=== PATIENT | female | born 1955 | race Asian ===

== ENCOUNTER 2017-01-21 07:55 | Day surgery (SDC) | payer MEDICARE, OTHER ==
[2017-01-21] MEDS ORDERED: LACTATED RINGERS 1,000 ML IV ONE (08:20)
[2017-01-21] MEDS ORDERED: fentaNYL 100 MCG/2 ML VIAL IVP ONE (09:01)
[2017-01-21] MEDS ORDERED: MIDAZOLAM 2 MG/2 ML VIAL IVP ONE (09:01)
== END 2017-01-21 07:56 | disposition home or self-care (01) ==
PROC: 0DBL8ZX Excision of Transverse Colon, Via Natural or Artificial Opening Endoscopic, Diagnostic (ICD-10-PCS; 2017-01-21)
PROC: 0DBN8ZX Excision of Sigmoid Colon, Via Natural or Artificial Opening Endoscopic, Diagnostic (ICD-10-PCS; 2017-01-21)
PROC: 0DBP8ZX Excision of Rectum, Via Natural or Artificial Opening Endoscopic, Diagnostic (ICD-10-PCS; 2017-01-21)
PROC: 0DBM8ZX Excision of Descending Colon, Via Natural or Artificial Opening Endoscopic, Diagnostic (ICD-10-PCS; 2017-01-21)
PROC: 0DBK8ZX Excision of Ascending Colon, Via Natural or Artificial Opening Endoscopic, Diagnostic (ICD-10-PCS; principal; 2017-01-21 09:00)
DX: K51.00 Ulcerative (chronic) pancolitis without complications (principal); K63.5 Polyp of colon
CPT/HCPCS: 45380; J7120

== ENCOUNTER 2017-11-20 17:22 | Emergency (ER) | payer OTHER, MEDICARE ==
[2017-11-20 17:29] VITALS: BP 137/81
[2017-11-20] MEDS ORDERED: IBUPROFEN 600 MG TABLET PO STA (18:17)
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
== END 2017-11-20 18:25 | disposition home or self-care (01) ==
LOC: ED 17:22
DX: S16.1XXA Strain of muscle, fascia and tendon at neck level, initial encounter (principal); V43.52XA Car driver injured in collision with other type car in traffic accident, initial encounter; Y92.481 Parking lot as the place of occurrence of the external cause
CPT/HCPCS: 99282; 99283

== ENCOUNTER 2017-12-15 14:16 | Outpatient (CLI) | payer MEDICARE, OTHER ==
--- NOTE | 2017-12-15 18:57 | XRAY Report ---
THREE VIEW LEFT ELBOW: 12/15/2017 CLINICAL INDICATION: Severe left elbow pain. FINDINGS: AP, lateral, oblique views of the left elbow demonstrate no evidence of fracture or dislocation. No effusion is present. The joint spaces are preserved. IMPRESSION: NORMAL LEFT ELBOW. TD: 12/15/2017 18:56
== END 2017-12-15 14:17 | disposition home or self-care (01) ==
LOC: DI 14:16
PROVIDERS: ATTEND Internal Medicine
DX: M25.522 Pain in left elbow (principal)

== ENCOUNTER 2018-04-20 09:13 | Outpatient (CLI) | payer MEDICARE, OTHER ==
--- NOTE | 2018-04-20 10:50 | XRAY Report ---
Procedure Date: 04/20/2018 Accession Number: [id number] / [id number] Procedure: XR - Foot 3 View BILAT CPT Code: FULL RESULT: EXAM: Foot 3 View BILAT DATE: 04/20/2018 9:27 AM CLINICAL HISTORY: BL FOOT PAIN X 3 WKS COMPARISON: Left calcaneus 05/31/2014, right foot 01/02/2014 TECHNIQUE: 3 views each foot. FINDINGS: RIGHT: Bones: Stable calcaneal spurring. Joints: Stable osteoarthritis of the first metatarsophalangeal joint, with minimal hallux valgus. Soft Tissues: Normal. No soft tissue swelling. LEFT: Bones: Stable calcaneal spurring. Joints: Normal. No subluxations. Soft Tissues: Normal. No soft tissue swelling. IMPRESSION: Stable bilateral calcaneal spurring and osteoarthritis of the right first metatarsophalangeal joint. RADIA
== END 2018-04-20 09:14 | disposition home or self-care (01) ==
LOC: DI 09:13
PROVIDERS: ATTEND Podiatrist
DX: M79.672 Pain in left foot (principal); M79.671 Pain in right foot; M19.071 Primary osteoarthritis, right ankle and foot; M77.32 Calcaneal spur, left foot; M77.31 Calcaneal spur, right foot

== ENCOUNTER 2018-11-08 23:53 | Outpatient (CLI) | payer MEDICARE, OTHER | END 2018-11-08 23:54 | disposition critical access hospital (66) | LOC: EMS 23:53 | PROVIDERS: ATTEND Surgery | DX: R25.8 Other abnormal involuntary movements (principal); R19.7 Diarrhea, unspecified | CPT/HCPCS: A0425; A0429 ==

== ENCOUNTER 2018-11-09 00:09 | Emergency (ER) | payer MEDICARE, OTHER ==
[2018-11-09] MEDS ORDERED: SODIUM CHLORIDE 0.9% 1,000 ML IV ONE (00:23)
[2018-11-09] MEDS ORDERED: ACETAMINOPHEN 500 MG TABLET PO STA (00:23)
[2018-11-09 00:54] LABS: BASOPHILS % (AUTO) 0.3 %; EOSINOPHILS # (AUTO) 0.2 10^3/uL (0.0-0.7); EOSINOPHILS % (AUTO) 1.1 %; HGB - HEMOGLOBIN 14.2 g/dL (12.0-16.0); LYMPHOCYTES # (AUTO) 0.6 10^3/uL (1.5-3.5); LYMPHOCYTES % (AUTO) 4.7 %; MEAN CORPUSCULAR HEMOGLOBIN 29.7 pg (27.0-31.0); MEAN CORPUSCULAR HGB CONC 32.8 g/dL (32.0-36.0); MEAN CORPUSCULAR VOLUME 90.7 fL (81.0-99.0); MEAN PLATELET VOLUME 6.6 fL (7.9-10.8); MONOCYTES # (AUTO) 0.3 10^3/uL (0.0-1.0); MONOCYTES % (AUTO) 1.9 %; NEUTROPHILS # (AUTO) 12.8 10^3/uL (1.5-6.6); PLT - PLATELET COUNT 290 10^3/uL (130-450); RED BLOOD COUNT 4.79 10^6/uL (4.20-5.40); RED CELL DISTRIBUTION WIDTH 14.7 % (12.0-15.0); WHITE BLOOD COUNT 13.9 x10^3/uL (4.8-10.8)
[2018-11-09 01:09] LABS: ALBUMIN 3.8 g/dL (3.2-5.5); ALBUMIN/GLOBULIN RATIO 1.1 (1.0-2.2); BILIRUBIN,TOTAL 0.6 mg/dL (0.2-1.0); CREATININE 0.6 mg/dL (0.4-1.0); TOTAL PROTEIN 7.2 g/dL (6.7-8.2)
[2018-11-09 01:43] LABS: BILIRUBIN,URINE NEGATIVE (NEGATIVE); GLUCOSE, URINE (UA) NEGATIVE (NEGATIVE); KETONES,URINE (UA) NEGATIVE (NEGATIVE); LEUKOCYTE ESTERASE, URINE NEGATIVE (NEGATIVE); NITRITE,URINE NEGATIVE (NEGATIVE); OCCULT BLOOD,URINE TRACE-INTA (NEGATIVE); PROTEIN,URINE NEGATIVE (NEGATIVE); UROBILINOGEN,URINE 0.2 (NORMAL) E.U./dL (NORMAL)
[2018-11-09 01:45] LABS: CLARITY,URINE CLEAR (CLEAR)
--- NOTE | 2018-11-09 02:55 | ED Physician Documentation ---
History of Present Illness - Stated complaint Stated Complaint: SHAKY - Chief complaint Chief Complaint: General - Additonal information Additional information: 63-year-old female presents to the emergency department for evaluation of feeling very chilled and shaky which occurred suddenly. At home the patient developed chills and feeling very shaky. The patient denies headache, nasal congestion, sore throat, cough, shortness of breath, abdominal pain or motor or sensory changes. Presently, the patient's symptoms are improved. No other associated symptoms. No attempts at symptom management. Symptoms are described as moderate Review of Systems Constitutional: reports: Fever, Chills, Myalgias, Fatigue Eyes: denies: Discharge Ears: denies: Ear pain Nose: denies: Rhinorrhea / runny nose, Congestion Throat: denies: Sore throat Cardiac: denies: Palpitations Respiratory: denies: Cough GI: denies: Vomiting : denies: Dysuria Skin: denies: Rash Musculoskeletal: denies: Neck pain Neurologic: reports: Generalized weakness PD PAST MEDICAL HISTORY - Past Medical History Cardiovascular: None Respiratory: None Endocrine/Autoimmune: None GI: Ulcerative colitis CHARTERED FINANCIAL ANALYST: Fibroids : None HEENT: Chronic vision loss Psych: None Musculoskeletal: None, Osteoarthritis Derm: Other - Past Surgical History Past Surgical History: Yes General: Colonoscopy, EGD - Present Medications Home Medications: Ambulatory Orders Medication Instructions Recorded Confirmed Mesalamine [Asacol] 400 mg PO BID 04/17/13 10/06/18 azaTHIOprine [Azathioprine] 100 mg PO DAILY 06/06/14 10/06/18 Ferrous Sulfate 325 mg PO DAILY 11/09/14 10/06/18 [place]-3/Dha/Epa/Fish Oil [[place]-3 2,000 mg PO DAILY 11/09/14 10/06/18 Fish Oil 1,000 mg Sfgl] Calcium Carbonate/Vitamin D3 1 tab PO BID 04/11/16 10/06/18 [Calcium 500 + Vit D Caplet] Cholecalciferol (Vitamin D3) 5,000 unit PO DAILY 10/02/17 10/06/18 [Vitamin D3] - Allergies Allergies/Adverse Reactions: Allergies Allergy/AdvReac Type Severity Reaction Status Date / Time No Known Drug Allergies Allergy Verified 06/04/18 13:32 - Social History Does the pt smoke?: No Smoking Status: Never smoker Does the pt drink ETOH?: No Does the pt have substance abuse?: No - Immunizations Immunizations are current?: Yes - POLST Patient has POLST: No PD ED PE NORMAL - General General: Alert and oriented X 3, No acute distress - HEENT HEENT: Atraumatic, PERRL, EOMI, Ears normal - Neck Neck: Supple, no meningeal sign - Cardiac Cardiac: RRR, Strong equal pulses - Respiratory Respiratory: No respiratory distress, Clear bilaterally - Abdomen Abdomen: Soft, Non tender, Non distended - Derm Derm: Normal color - Extremities Extremities: No deformity, No edema - Neuro Neuro: Alert and oriented X 3, Normal speech - Psych Psych: Normal affect Results - Vitals Vitals: Vital Signs - 24 hr 11/09/18 11/09/18 00:13 02:19 Temperature 38.5 C H 37.6 C H Heart Rate 74 68 Respiratory 18 16 Rate Blood Pressure 138/80 H 105/64 O2 Saturation 97 96 Oxygen O2 Source Room air - Labs Labs: Laboratory Tests 11/09/18 11/09/18 11/09/18 00:38 00:38 00:38 WBC 13.9 H RBC 4.79 Hgb 14.2 Hct 43.5 MCV 90.7 MCH 29.7 MCHC 32.8 RDW 14.7 Plt Count 290 MPV 6.6 L Neut # (Auto) 12.8 H Lymph # (Auto) 0.6 L [place] # (Auto) 0.3 Eos # (Auto) 0.2 Baso # (Auto) 0.0 Absolute Nucleated RBC 0.01 Nucleated RBC % 0.0 Sodium 139 Potassium 3.7 Chloride 102 Carbon Dioxide 28 Anion Gap 9.0 BUN 21 H Creatinine 0.6 Estimated GFR (MDRD) 101 Glucose 106 H Lactic Acid Calcium 9.0 Total Bilirubin 0.6 AST 21 ALT 24 Alkaline Phosphatase 59 Troponin I < 0.04 Total Protein 7.2 Albumin 3.8 Globulin 3.4 Albumin/Globulin Ratio 1.1 Lipase 50 Urine Color Urine Clarity Urine pH Ur Specific [place] Urine Protein Urine Glucose (UA) Urine Ketones Urine Occult Blood Urine Nitrite Urine Bilirubin Urine Urobilinogen Ur Leukocyte Esterase Ur Microscopic Review Urine Culture Comments Influenza A (Rapid) Influenza B (Rapid) 11/09/18 11/09/18 11/09/18 00:38 00:48 01:05 WBC RBC Hgb Hct MCV MCH MCHC RDW Plt Count MPV Neut # (Auto) Lymph # (Auto) [place] # (Auto) Eos # (Auto) Baso # (Auto) Absolute Nucleated RBC Nucleated RBC % Sodium Potassium Chloride Carbon Dioxide Anion Gap BUN Creatinine Estimated GFR (MDRD) Glucose Lactic Acid 1.6 Calcium Total Bilirubin AST ALT Alkaline Phosphatase Troponin I Total Protein Albumin Globulin Albumin/Globulin Ratio Lipase Urine Color YELLOW Urine Clarity CLEAR Urine pH 6.0 Ur Specific [place] 1.020 Urine Protein NEGATIVE Urine Glucose (UA) NEGATIVE Urine Ketones NEGATIVE Urine Occult Blood TRACE-INTA Urine Nitrite NEGATIVE Urine Bilirubin NEGATIVE Urine Urobilinogen 0.2 (NORMAL) Ur Leukocyte Esterase NEGATIVE Ur Microscopic Review NOT INDICATED Urine Culture Comments NOT INDICATED Influenza A (Rapid) Negative Influenza B (Rapid) Negative PD MEDICAL DECISION MAKING - ED course ED course: The patient's shaking seems to be secondary to the sudden onset of a fever. The patient's symptoms most likely representing viral process. Currently there is no evidence of acute Sepsis, pneumonia on clinical exam or urine infection. Most likely the etiology is viral. On reassessment the patient is resting comfortably and her symptoms are much improved. The patient appears appropriate for discharge and ongoing outpatient management. I discussed warning signs and recommended returning to the emergency department for any worsening or any concerns Departure - Departure Disposition: 01 Home, Self Care Clinical Impression: Febrile illness, acute Condition: Good Instructions: ED Viral Syndrome Follow-Up: Ethel Chavez MD [Primary Care Provider] - Within 1 week Comments: Please return to the emergency department for any worsening or any concerns
[2018-11-09 03:04] VITALS: BP 94/53
== END 2018-11-09 03:13 | disposition home or self-care (01) ==
LOC: EDUNIT# → ED 00:09
DX: R50.9 Fever, unspecified (principal)
CPT/HCPCS: 36415; 80053; 81003; 83605; 83690; 84484; 85025; 87040; 87275; 87276; 96360; 99283; A9270; 81001; 87086

== ENCOUNTER 2019-03-24 14:10 | Outpatient (CLI) | payer MEDICARE, OTHER ==
--- NOTE | 2019-03-24 15:29 | XRAY Report ---
Reason: COUGH Procedure Date: 03/24/2019 Accession Number: [id number] / [id number] Procedure: XR - Chest 2 View X-Ray CPT Code: 50523 FULL RESULT: EXAM: CHEST RADIOGRAPHY EXAM DATE: 03/24/2019 02:32 PM. CLINICAL HISTORY: Cough. COMPARISON: CHEST 2 VIEW PA/LAT 08/17/2014 2:39 PM. TECHNIQUE: 2 views. FINDINGS: Lungs/Pleura: No focal opacities evident. No pleural effusion. No pneumothorax. Normal volumes. Mediastinum: Heart and mediastinal contours are unremarkable. Other: None. IMPRESSION: No acute cardiopulmonary abnormality. RADIA
== END 2019-03-24 14:11 | disposition home or self-care (01) ==
LOC: DI 14:10
PROVIDERS: ATTEND Internal Medicine
DX: R05 Cough (principal)
CPT/HCPCS: 71046

== ENCOUNTER 2019-05-27 09:50 | Outpatient (CLI) | payer MEDICARE, OTHER ==
[2019-05-27 10:11] LABS: BASOPHILS # (AUTO) 0.1 10^3/uL (0.0-0.1); BASOPHILS % (AUTO) 1.4 %; EOSINOPHILS # (AUTO) 0.1 10^3/uL (0.0-0.7); EOSINOPHILS % (AUTO) 2.9 %; HGB - HEMOGLOBIN 13.2 g/dL (12.0-16.0); LYMPHOCYTES # (AUTO) 0.9 10^3/uL (1.5-3.5); LYMPHOCYTES % (AUTO) 26.6 %; MEAN CORPUSCULAR HEMOGLOBIN 29.5 pg (27.0-31.0); MEAN CORPUSCULAR HGB CONC 31.4 g/dL (32.0-36.0); MEAN PLATELET VOLUME 8.2 fL (7.9-10.8); MONOCYTES # (AUTO) 0.6 10^3/uL (0.0-1.0); MONOCYTES % (AUTO) 17.1 %; NEUTROPHILS # (AUTO) 1.8 10^3/uL (1.5-6.6); NEUTROPHILS % (AUTO) 51.7 %; PLT - PLATELET COUNT 312 10^3/uL (130-450); RED BLOOD COUNT 4.48 10^6/uL (4.20-5.40); RED CELL DISTRIBUTION WIDTH 13.9 % (12.0-15.0); WHITE BLOOD COUNT 3.5 x10^3/uL (4.8-10.8)
[2019-05-27 10:33] LABS: ALBUMIN 3.7 g/dL (3.2-5.5); ALBUMIN/GLOBULIN RATIO 1.1 (1.0-2.2); BILIRUBIN,TOTAL 1.4 mg/dL (0.2-1.0); CALCIUM 8.8 mg/dL (8.5-10.3); CREATININE 0.6 mg/dL (0.4-1.0); TOTAL PROTEIN 7.1 g/dL (6.7-8.2)
== END 2019-05-27 09:51 | disposition home or self-care (01) ==
LOC: LAB 09:50
PROVIDERS: ATTEND Internal Medicine Gastroenterology
DX: K51.011 Ulcerative (chronic) pancolitis with rectal bleeding (principal)
CPT/HCPCS: 36415; 80053; 85025; 86140

== ENCOUNTER 2019-08-27 15:21 | Emergency (ER) | payer OTHER, MEDICARE ==
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
[2019-08-27 18:28] VITALS: BP 122/78
== END 2019-08-27 18:47 | disposition home or self-care (01) ==
LOC: ED 15:21
DX: Z04.1 Encounter for examination and observation following transport accident (principal)
CPT/HCPCS: 99282

== ENCOUNTER 2021-04-30 11:53 | Outpatient (CLI) | payer MEDICARE, OTHER ==
--- NOTE | 2021-04-30 15:17 | Ultrasound Report ---
PROCEDURE: Duplex Ext Veins Right INDICATIONS: RLE discomfort TECHNIQUE: Real-time imaging, as well as color and pulse Doppler interrogation, were performed of the lower extr emity deep veins from the inguinal ligament to the popliteal fossa. COMPARISON: None. FINDINGS: The deep veins are normally compressible, and free of intraluminal thrombus. Color and pu lse Doppler demonstrate normal phasic intraluminal flow. There is normal augmentation response to di stal compression maneuver. IMPRESSION: No sonographic evidence of DVT. Reviewed by: Ten Gagnon MD on 04/30/2021 3:16 PM PDT Approved by: Ten Gagnon MD on 04/30/2021 3:16 PM PDT Station ID: [id number]
== END 2021-04-30 11:54 | disposition home or self-care (01) ==
LOC: LAB 11:53 → DI 11:54
PROVIDERS: ATTEND Internal Medicine
DX: M79.661 Pain in right lower leg (principal)

== ENCOUNTER 2021-06-04 11:37 | Outpatient (CLI) | payer MEDICARE, OTHER ==
--- NOTE | 2021-06-04 11:55 | XRAY Report ---
PROCEDURE: Foot 3 View LT INDICATIONS: L FOOT INJURY,PAIN TECHNIQUE: 4 views of the foot were acquired. COMPARISON: [facility] 04/20/2018. FINDINGS: Bones: No fractures or dislocations. There is mild degeneration of the interphalangeal joints. Visua lized osseous structures appear osteopenic. No suspicious bony lesions. Soft tissues: No tibiotalar joint effusion. Achilles tendon appears intact. IMPRESSION: 1. No fracture or dislocation. Reviewed by: Álvaro Brandt MD on 06/04/2021 11:54 AM PDT Approved by: Álvaro Brandt MD on 06/04/2021 11:54 AM PDT Station ID: [id number]
[2021-06-04 11:59] LABS: EOSINOPHILS # (AUTO) 0.1 10^3/uL (0.0-0.7); EOSINOPHILS % (AUTO) 1.8 %; HCT - HEMATOCRIT 43.9 % (37.0-47.0); HGB - HEMOGLOBIN 14.1 g/dL (12.0-16.0); LYMPHOCYTES # (AUTO) 0.8 10^3/uL (1.5-3.5); LYMPHOCYTES % (AUTO) 19.9 %; MEAN CORPUSCULAR HEMOGLOBIN 30.3 pg (27.0-31.0); MEAN CORPUSCULAR HGB CONC 32.1 g/dL (32.0-36.0); MEAN CORPUSCULAR VOLUME 94.2 fL (81.0-99.0); MEAN PLATELET VOLUME 8.6 fL (7.9-10.8); MONOCYTES # (AUTO) 0.4 10^3/uL (0.0-1.0); MONOCYTES % (AUTO) 11.1 %; NEUTROPHILS # (AUTO) 2.6 10^3/uL (1.5-6.6); NEUTROPHILS % (AUTO) 66.2 %; PLT - PLATELET COUNT 247 10^3/uL (130-450); RED BLOOD COUNT 4.66 10^6/uL (4.20-5.40); RED CELL DISTRIBUTION WIDTH 14.1 % (12.0-15.0)
[2021-06-04 12:18] LABS: ALBUMIN 3.7 g/dL (3.2-5.5); ALBUMIN/GLOBULIN RATIO 1.2 (1.0-2.2); BILIRUBIN,TOTAL 0.7 mg/dL (0.2-1.0); CREATININE 0.6 mg/dL (0.4-1.0); POTASSIUM 4.2 mmol/L (3.5-5.0); TOTAL PROTEIN 6.9 g/dL (6.7-8.2)
== END 2021-06-04 11:38 | disposition home or self-care (01) ==
LOC: DI 11:37
PROVIDERS: ATTEND Internal Medicine
DX: S99.922A Unspecified injury of left foot, initial encounter (principal); M79.672 Pain in left foot; K51.011 Ulcerative (chronic) pancolitis with rectal bleeding
CPT/HCPCS: 36415; 80053; 83993; 85025

== ENCOUNTER 2021-10-17 14:50 | Outpatient (CLI) | payer MEDICARE, OTHER ==
[2021-10-17 15:24] LABS: BILIRUBIN,URINE NEGATIVE (NEGATIVE); GLUCOSE, URINE (UA) NEGATIVE (NEGATIVE); KETONES,URINE (UA) NEGATIVE (NEGATIVE); LEUKOCYTE ESTERASE, URINE NEGATIVE (NEGATIVE); NITRITE,URINE NEGATIVE (NEGATIVE); OCCULT BLOOD,URINE TRACE-INTA (NEGATIVE); PROTEIN,URINE NEGATIVE (NEGATIVE); UROBILINOGEN,URINE 0.2 (NORMAL) E.U./dL (NORMAL)
[2021-10-17 15:25] LABS: CLARITY,URINE CLEAR (CLEAR)
--- NOTE | 2021-10-17 15:35 | XRAY Report ---
PROCEDURE: Chest 2 View X-Ray INDICATIONS: FEVER,COUGH TECHNIQUE: 2 view(s) of the chest. COMPARISON: March 24, 2019 FINDINGS: SUPPORT DEVICES: None. LUNGS/PLEURA: No focal consolidation, pleural effusion or space-occupying pneumothorax. MEDIASTINUM: The cardiomediastinal silhouette is within normal limits. BONES/SOFT TISSUES: No acute abnormality. IMPRESSION: 1.No acute cardiopulmonary abnormality. Reviewed by: Ian Maxwell MD on 10/17/2021 3:34 PM [facility] Approved by: Ian Maxwell MD on 10/17/2021 3:34 PM [facility] Station ID: [id number]
[2021-10-17 15:51] LABS: BACTERIA,URINE Rare /HPF (None Seen); RBC,URINE None Seen /HPF (0-5); SQUAMOUS EPITHELIAL CELL,UR NONE SEEN (<= Few); WBC,URINE 0-3 /HPF (0-5)
== END 2021-10-17 14:51 | disposition home or self-care (01) ==
LOC: LAB 14:50 → DI 14:51
PROVIDERS: ATTEND Internal Medicine
DX: R50.9 Fever, unspecified (principal); R05.9 Cough, unspecified
CPT/HCPCS: 81001; 87040; 87086

== ENCOUNTER 2021-10-21 08:00 | Outpatient (CLI) | payer MEDICARE, OTHER | END 2021-10-21 23:59 | LOC: LAB.R 08:00 | PROVIDERS: ATTEND Internal Medicine | DX: U07.1 COVID-19 (principal) ==

== ENCOUNTER 2021-12-05 15:40 | Outpatient (CLI) | payer MEDICARE, OTHER ==
--- NOTE | 2021-12-05 16:09 | XRAY Report ---
PROCEDURE: Foot 3 View BILAT INDICATIONS: BILAT FOOT PAIN TECHNIQUE: 3 views of the bilateral feet were acquired. COMPARISON: June 04, 2021 FINDINGS: BONES: Right: No acute, displaced fracture or dislocation. Mild to moderate arthrosis of the first MTP. Sma ll plantar calcaneal enthesophyte. Diffuse osteopenia. Productive change of the hallux sesamoids. Left: No acute, displaced fracture or dislocation. Productive change of the hallux sesamoids. Small p lantar calcaneal enthesophyte. Diffuse osteopenia. SOFT TISSUES: No focal abnormality. IMPRESSION: 1.No acute osseous abnormality. Reviewed by: Ian Maxwell MD on 12/05/2021 4:08 PM [facility] Approved by: Ian Maxwell MD on 12/05/2021 4:08 PM [facility] Station ID: [id number]
== END 2021-12-05 15:41 | disposition home or self-care (01) ==
LOC: DI 15:40
PROVIDERS: ATTEND Podiatrist
DX: M79.672 Pain in left foot (principal); M79.671 Pain in right foot

== ENCOUNTER 2021-12-18 12:28 | Outpatient (CLI) | payer MEDICARE, OTHER ==
[2021-12-18 13:33] LABS: B. PARAPERTUSSIS- RESP PCR PAN NOT DETECTED; B. PERTUSSIS- RESP PCR PANEL NOT DETECTED; C. PNEUMONIAE- RESP PCR PANEL NOT DETECTED; CORONAVIRUS 229E-RESP PCR NOT DETECTED; CORONAVIRUS HKU1-RESP PCR NOT DETECTED; CORONAVIRUS NL63-RESP PCR NOT DETECTED; CORONAVIRUS OC43-RESP PCR NOT DETECTED; HUMAN METAPNEUMOVIRUS NOT DETECTED; INFLUENZA A- RESP PCR PANEL NOT DETECTED; INFLUENZA B - RESP PCR PANEL NOT DETECTED; M. PNEUMONIAE- RESP PCR PANEL NOT DETECTED; PARAINFLUENZA VIRUS 1 NOT DETECTED; PARAINFLUENZA VIRUS 2 NOT DETECTED; PARAINFLUENZA VIRUS 3 NOT DETECTED; PARAINFLUENZA VIRUS 4 NOT DETECTED; RHINOVIRUS/ENTEROVIRUS DETECTED; RSV- RESP PCR PANEL NOT DETECTED; SARS-CoV-2 -RESP PCR PANEL NOT DETECTED
== END 2021-12-18 12:29 | disposition home or self-care (01) ==
LOC: LAB.R 12:28
PROVIDERS: ATTEND Internal Medicine
DX: R05.1 Acute cough (principal); Z20.822 Contact with and (suspected) exposure to COVID-19
CPT/HCPCS: 0202U

== ENCOUNTER 2022-02-05 14:35 | Outpatient (CLI) | payer MEDICARE, OTHER ==
[2022-02-05 14:55] LABS: BASOPHILS % (AUTO) 0.7 %; EOSINOPHILS # (AUTO) 0.1 10^3/uL (0.0-0.7); EOSINOPHILS % (AUTO) 1.7 %; HCT - HEMATOCRIT 45.4 % (37.0-47.0); HGB - HEMOGLOBIN 14.8 g/dL (12.0-16.0); LYMPHOCYTES # (AUTO) 1.4 10^3/uL (1.5-3.5); LYMPHOCYTES % (AUTO) 29.3 %; MEAN CORPUSCULAR HEMOGLOBIN 30.6 pg (27.0-31.0); MEAN CORPUSCULAR HGB CONC 32.6 g/dL (32.0-36.0); MEAN PLATELET VOLUME 8.6 fL (7.9-10.8); MONOCYTES # (AUTO) 0.4 10^3/uL (0.0-1.0); MONOCYTES % (AUTO) 9.3 %; NEUTROPHILS # (AUTO) 2.7 10^3/uL (1.5-6.6); NEUTROPHILS % (AUTO) 58.8 %; PLT - PLATELET COUNT 218 10^3/uL (130-450); RED BLOOD COUNT 4.83 10^6/uL (4.20-5.40); RED CELL DISTRIBUTION WIDTH 12.6 % (12.0-15.0); WHITE BLOOD COUNT 4.6 x10^3/uL (4.8-10.8)
[2022-02-05 15:11] LABS: ALBUMIN 3.8 g/dL (3.2-5.5); ALBUMIN/GLOBULIN RATIO 1.2 (1.0-2.2); BILIRUBIN,TOTAL 0.5 mg/dL (0.2-1.0); CALCIUM 9.2 mg/dL (8.5-10.3); CREATININE 0.8 mg/dL (0.4-1.0); POTASSIUM 4.5 mmol/L (3.5-5.0); TOTAL PROTEIN 6.9 g/dL (6.7-8.2)
== END 2022-02-05 14:36 | disposition home or self-care (01) ==
LOC: LAB 14:35
PROVIDERS: ATTEND Internal Medicine Gastroenterology
DX: R79.82 Elevated C-reactive protein (CRP) (principal); D50.9 Iron deficiency anemia, unspecified; K51.011 Ulcerative (chronic) pancolitis with rectal bleeding
CPT/HCPCS: 36415; 80053; 85025; 86140

== ENCOUNTER 2022-02-27 20:17 | Outpatient (CLI) | payer MEDICARE, OTHER ==
--- NOTE | 2022-02-28 09:58 | Ultrasound Report ---
PROCEDURE: Pelvic w/Transvaginal INDICATIONS: FIBROIDS TECHNIQUE: Real-time scanning was performed of the pelvic organs, with image documentation. Additional endovagi nal scanning was necessary due to incomplete visualization of the adnexal and endometrial structures by transabdominal scanning. COMPARISON: None. FINDINGS: UTERUS: Anteverted and measures 8.1 x 4.2 x 4.8 cm. Heterogeneous echotexture. The endometrial complex measures 5.9 mm. Mild lesions are seen within the uterus, compatible with fibroids. Fibroid 1: Mid; Posterior; intramural: Measures 2.5 x 2.5 x 2.5 cm. Fibroid 2: Left; Posterior; subserosal: Measures 1.8 x 1.3 x 1.1 cm. Hypoechoic lesions are seen within the cervix, compatible with nabothian cysts. RIGHT OVARY: Not visualized. LEFT OVARY: Not visualized. OTHER: None. IMPRESSION: 1.Myomatous change of the uterus as detailed above. Reviewed by: Ian Maxwell MD on 02/28/2022 9:57 AM PDT Approved by: Ian Maxwell MD on 02/28/2022 9:57 AM PDT Station ID: [id number]
== END 2022-02-27 20:18 | disposition home or self-care (01) ==
LOC: DI 20:17
PROVIDERS: ATTEND Internal Medicine
DX: D25.1 Intramural leiomyoma of uterus (principal); D25.2 Subserosal leiomyoma of uterus

== ENCOUNTER 2022-03-03 13:39 | Outpatient (CLI) | payer MEDICARE, OTHER | END 2022-03-03 13:40 | disposition home or self-care (01) | LOC: LAB 13:39 | PROVIDERS: ATTEND Internal Medicine | DX: Z20.822 Contact with and (suspected) exposure to COVID-19 (principal) ==

== ENCOUNTER 2022-03-13 12:17 | Outpatient (CLI) | payer MEDICARE, OTHER ==
--- NOTE | 2022-03-13 14:20 | Ultrasound Report ---
PROCEDURE: Duplex Ext Veins Right INDICATIONS: right arm pain and swelling TECHNIQUE: Real-time imaging, as well as color and pulse Doppler interrogation, were performed of the right uppe r extremity deep veins from the inguinal ligament to the popliteal fossa. COMPARISON: None. FINDINGS: The deep veins are normally compressible, and free of intraluminal thrombus. Color and pu lse Doppler demonstrate normal phasic intraluminal flow. There is normal augmentation response to di stal compression maneuver. IMPRESSION: Stenosis. Reviewed by: Kathie Fields MD on 03/13/2022 2:18 PM PDT Approved by: Kathie Fields MD on 03/13/2022 2:18 PM PDT Station ID: [id number]
== END 2022-03-13 12:18 | disposition home or self-care (01) ==
LOC: DI 12:17
PROVIDERS: ATTEND Internal Medicine
DX: M79.601 Pain in right arm (principal)

== ENCOUNTER 2022-12-04 13:50 | Outpatient (CLI) | payer MEDICARE, OTHER ==
[2022-12-04 14:22] LABS: ALBUMIN 2.9 g/dL (3.2-5.5); ALBUMIN/GLOBULIN RATIO 0.8 (1.0-2.2); BILIRUBIN,TOTAL 0.6 mg/dL (0.2-1.0); CALCIUM 8.5 mg/dL (8.5-10.3); CREATININE 0.8 mg/dL (0.4-1.0); CRP - C-REACTIVE PROTEIN 1.8 mg/dL (0-1.0); POTASSIUM 3.5 mmol/L (3.5-5.0); TOTAL PROTEIN 6.6 g/dL (6.7-8.2)
== END 2022-12-04 13:51 | disposition home or self-care (01) ==
LOC: LAB 13:50
PROVIDERS: ATTEND Internal Medicine Gastroenterology
DX: K51.011 Ulcerative (chronic) pancolitis with rectal bleeding (principal)
CPT/HCPCS: 36415; 80053; 86140

== ENCOUNTER 2022-12-11 11:10 | Outpatient (CLI) | payer MEDICARE, OTHER | END 2022-12-11 23:59 | disposition home or self-care (01) | LOC: LAB.R 11:10 | PROVIDERS: ATTEND Internal Medicine Gastroenterology | DX: D50.9 Iron deficiency anemia, unspecified (principal); K51.011 Ulcerative (chronic) pancolitis with rectal bleeding; R94.5 Abnormal results of liver function studies | CPT/HCPCS: 83993; 87493 ==

== ENCOUNTER 2023-08-11 14:27 | Outpatient (CLI) | payer MEDICARE, OTHER ==
--- NOTE | 2023-08-11 15:48 | XRAY Report ---
PROCEDURE: Knee 3 View RT INDICATIONS: RIGHT KNEE PAIN TECHNIQUE: 3 views of the right knee(s) were acquired. COMPARISON: None. FINDINGS: Bones: No fractures or dislocations. No suspicious bony lesions. Soft tissues: No knee joint effusion. No suspicious soft tissue calcifications or masses. IMPRESSION: No acute bony abnormality. Reviewed by: Julien Riojas on 08/11/2023 3:47 PM PDT Approved by: Julien Riojas on 08/11/2023 3:47 PM PDT Station ID: [id number]
== END 2023-08-11 14:28 | disposition home or self-care (01) ==
LOC: DI 14:27
PROVIDERS: ATTEND Internal Medicine
DX: M25.561 Pain in right knee (principal)

== ENCOUNTER 2024-04-05 22:40 | Outpatient (CLI) | payer MEDICARE, OTHER | END 2024-04-05 23:59 | disposition critical access hospital (66) | LOC: EMS 22:40 | DX: R25.2 Cramp and spasm (principal) | CPT/HCPCS: A0425; A0429 ==

== ENCOUNTER 2024-04-05 22:52 | Emergency (ER) | payer MEDICARE, OTHER ==
[2024-04-05 23:45] LABS: BASOPHILS % (AUTO) 0.3 %; EOSINOPHILS % (AUTO) 0.5 %; HCT - HEMATOCRIT 39.3 % (37.0-47.0); LYMPHOCYTES # (AUTO) 1.7 10^3/uL (1.5-3.5); LYMPHOCYTES % (AUTO) 22.3 %; MEAN CORPUSCULAR HEMOGLOBIN 29.3 pg (27.0-31.0); MEAN CORPUSCULAR HGB CONC 30.5 g/dL (32.0-36.0); MEAN CORPUSCULAR VOLUME 95.9 fL (81.0-99.0); MEAN PLATELET VOLUME 8.5 fL (7.9-10.8); MONOCYTES # (AUTO) 0.8 10^3/uL (0.0-1.0); MONOCYTES % (AUTO) 10.1 %; NEUTROPHILS % (AUTO) 66.3 %; PLT - PLATELET COUNT 292 10^3/uL (130-450); RED CELL DISTRIBUTION WIDTH 13.7 % (12.0-15.0); WHITE BLOOD COUNT 7.6 x10^3/uL (4.8-10.8)
[2024-04-05 23:58] LABS: MAGNESIUM 2.1 mg/dL (1.7-2.3)
[2024-04-06 00:04] LABS: ALBUMIN 3.4 g/dL (3.2-5.5); ALBUMIN/GLOBULIN RATIO 1.2 (1.0-2.2); ALKALINE PHOSPHATASE 39 IU/L (42-121); ALT ALANINE AMINOTRANSFERASE 18 IU/L (10-60); AST ASPARTATE AMINOTRANSFERASE 13 IU/L (10-42); BILIRUBIN,TOTAL 0.4 mg/dL (0.2-1.0); BUN - BLOOD UREA NITROGEN 10 mg/dL (6-20); CALCIUM 8.5 mg/dL (8.5-10.3); CARBON DIOXIDE - CO2 24 mmol/L (21-32); CHLORIDE 105 mmol/L (101-111); CREATININE 0.7 mg/dL (0.6-1.3); GFR - MDRD 83 (>89); GLUCOSE 211 mg/dL (74-104); IONIZED CALCIUM IF INDICATED NO; PHOSPHORUS 2.6 mg/dL (2.5-5.0); POTASSIUM 4.3 mmol/L (3.5-4.5); SODIUM 136 mmol/L (135-145); TOTAL PROTEIN 6.2 g/dL (6.4-8.9)
--- NOTE | 2024-04-06 00:19 | ED Physician Documentation ---
History of Present Illness - Stated complaint Stated Complaint: LEG CRAMPS - Chief complaint Chief Complaint: Ext Problem - History obtained from History obtained from: Patient - Additonal information Additional information: BIBA. HPI from patient. Patient complains of sudden onset bilateral leg cramps. This occurred earlier this evening while she was at home cleaning her kitchen. She says the leg cramps were predominantly both calves, left greater than right, but she also had some cramping pain in both thighs, as well. She says she has had similar leg cramps in the past although never this prolonged, severe, nor bilateral. By the time of this H&P, the cramping has resolved. The episode lasted approximately 60 minutes. Review of Systems Cardiac: reports: Reviewed and negative Respiratory: reports: Reviewed and negative Musculoskeletal: reports: Extremity pain. denies: Extremity swelling Neurologic: denies: Focal weakness, Numbness PD PAST MEDICAL HISTORY - Past Medical History Past Medical History: Yes Cardiovascular: None Respiratory: None Neuro: None Endocrine/Autoimmune: None GI: Ulcerative colitis [employer]: Fibroids : None HEENT: Chronic vision loss Psych: None Musculoskeletal: Osteoarthritis Derm: Other - Past Surgical History Past Surgical History: Yes General: Colonoscopy, EGD - Present Medications Home Medications: Ambulatory Orders Medication Instructions Recorded Confirmed Mesalamine [Asacol] 400 mg PO BID 04/17/13 01/28/19 azaTHIOprine [Azathioprine] 100 mg PO DAILY 06/06/14 01/28/19 Ferrous Sulfate 325 mg PO DAILY 11/09/14 01/28/19 [place]-3/Dha/Epa/Fish Oil [[place]-3 2,000 mg PO DAILY 11/09/14 01/28/19 Fish Oil 1,000 mg Sfgl] Calcium Carbonate/Vitamin D3 1 tab PO BID 04/11/16 01/28/19 [Calcium 500 + Vit D Caplet] Cholecalciferol (Vitamin D3) 5,000 unit PO DAILY 10/02/17 01/28/19 [Vitamin D3] Cyclobenzaprine [Flexeril] 10 mg PO TID PRN #20 tablet 04/06/24 diazePAM [Valium] 5 mg PO BID PRN #14 tablet 04/06/24 - Allergies Allergies/Adverse Reactions: Allergies Allergy/AdvReac Type Severity Reaction Status Date / Time No Known Drug Allergies Allergy Verified 04/05/24 23:00 - Social History Does the pt smoke?: No Smoking Status: Never smoker Does the pt drink ETOH?: No Does the pt have substance abuse?: No - Immunizations Immunizations are current?: Yes - POLST Patient has POLST: No PD ED PE NORMAL - Vitals Vital signs reviewed: Yes - General General: Alert and oriented X 3, No acute distress, Well developed/nourished - Respiratory Respiratory: No respiratory distress - Derm Derm: Normal color, Warm and dry - Extremities Extremities: No tenderness to palpate, Normal ROM s pain, No edema, No calf tenderness / cord, Other (strong bilateral DP pulses, brisk capillary refill in toes ) - Neuro Neuro: No motor deficit (FROM and normal strength bilateral dorsi/plantarflexion, knee flexion/extension, hip extension), No sensory deficit (LTS intact BLE) Results - Vitals Vitals: Vital Signs - 24 hr 04/05/24 04/05/24 04/06/24 22:58 23:19 01:16 Temperature 37.1 C Heart Rate 85 83 75 Respiratory 17 16 16 Rate Blood Pressure 138/77 H 124/75 126/70 O2 Saturation 98 97 996 H Oxygen O2 Source Room air - Labs Labs: Laboratory Tests 04/05/24 04/05/24 23:35 23:35 WBC 7.6 RBC 4.10 L Hgb 12.0 Hct 39.3 MCV 95.9 MCH 29.3 MCHC 30.5 L RDW 13.7 Plt Count 292 MPV 8.5 Neut # (Auto) 5.0 Lymph # (Auto) 1.7 [place] # (Auto) 0.8 Eos # (Auto) 0.0 Baso # (Auto) 0.0 Absolute Nucleated RBC 0.00 Nucleated RBC % 0.0 Sodium 136 Potassium 4.3 Chloride 105 Carbon Dioxide 24 Anion Gap 7.0 BUN 10 Creatinine 0.7 Estimated GFR (MDRD) 83 L Glucose 211 H Calcium 8.5 Ionized Calcium NO Phosphorus 2.6 Magnesium 2.1 Total Bilirubin 0.4 AST 13 ALT 18 Alkaline Phosphatase 39 L Total Protein 6.2 L Albumin 3.4 Globulin 2.8 Albumin/Globulin Ratio 1.2 PD Medical Decision Making - ED course Complexity details: reviewed results, re-evaluated patient, considered differential, d/w patient ED course: Unremarkable CBC, ER abdominal panel. Normal calcium, magnesium, and phosphorus levels. Incidental note of mild hyperglycemia (glucose 211). No concerning findings on physical exam. She is in NAD at the time of this evaluation as well as just prior to discharge. Results discussed with patient, return precautions reviewed. To lessen odds of recurrence in the overnight period, she is given 10 mg cyclobenzaprine p.o. along with 2 mg p.o. diazepam prior to discharge from the ED. I have electronically submitted prescriptions for the cyclobenzaprine as well as (5 mg) diazepam to patient's pharmacy of choice. She is given the lower dose diazepam in the emergency department as it is given concomitantly with the Flexeril; however, I verbally instructed patient to take the prescribed 5mg Valium/diazepam for recurrence of the cramping and then to only take the Flexeril if she does not have adequate relief after approximately 30 minutes from taking a dose of the diazepam. Departure - Departure Disposition: 01 Home, Self Care Clinical Impression: Leg cramps Condition: Good Instructions: ED Muscle Pain Leg Cramps Follow-Up: Ethel Chavez MD [Primary Care Provider] - Prescriptions: Cyclobenzaprine [Flexeril] 10 mg PO TID PRN #20 tablet PRN Reason: Spasms diazePAM [Valium] 5 mg PO BID PRN #14 tablet PRN Reason: Spasms Comments: There are no concerning nor contributory findings on tonight's blood test. As we discussed, an incidental note is made of high blood sugar (your blood sugar tonight was 211). This would not cause nor contribute to leg cramps; however, it is high enough that you need to discuss this with your primary care provider. The cause of your leg cramps is not apparent at this time. I have electronically submitted prescriptions for 2 different muscle relaxants to [facility] [address] in [place]. One is cyclobenzaprine (Flexeril), the other diazepam (Valium). The diazepam is a stronger muscle relaxant than the cyclobenzaprine but also is more likely to cause significant side effect (particularly drowsiness). As we discussed, if you have more episodes of the severe leg cramps, I would recommend that you take a dose of the diazepam. If this does not provide adequate relief within 30 minutes, you can then take a dose of the cyclobenzaprine. DO NOT DRIVE FOR AT LEAST 6 HOURS AFTER TAKING DIAZEPAM as it may cause drowsiness. Discharge Date/Time: 04/06/24 01:16
[2024-04-06] MEDS: diazePAM 5 MG TABLET PO STA (01:14)
[2024-04-06] MEDS: CYCLOBENZAPRINE 10 MG TABLET PO STA (01:14)
[2024-04-06 01:18] VITALS: BP 126/70; O2SAT 996
== END 2024-04-06 01:16 | disposition home or self-care (01) ==
LOC: EDUNIT# → ED 22:52
DX: R25.2 Cramp and spasm (principal); Z79.899 Other long term (current) drug therapy
CPT/HCPCS: 36415; 80053; 83735; 84100; 85025; 99283; 99284; A9270

== ENCOUNTER 2024-04-11 15:33 | Outpatient (CLI) | payer MEDICARE, OTHER ==
--- NOTE | 2024-04-12 08:16 | XRAY Report ---
PROCEDURE: Foot 3+V LT (Weight Bearing) INDICATIONS: LEFT FOOT PAIN TECHNIQUE: 3 views of the foot were acquired. COMPARISON: X-ray foot bilateral, 12/05/2021. FINDINGS: Bones: Pes planus. No fractures or dislocations. No suspicious bony lesions. Mild degenerative lainey nt disease in ankle and foot. Subtle bony erosion in the navicula at the naviculocuneiform joint. Wai caneal spurring. Osteopenia. Soft tissues: No tibiotalar joint effusion. Achilles tendon appears normal. IMPRESSION: 1. No acute bony abnormality. 2. Pes planus. 3. Mild degenerative joint disease. Subtle periarticular bony erosion is present. Recommend clinical correlation for inflammatory arthritis such as erosive OA. 4. Calcaneal spurring. 5. Osteopenia. Reviewed by: Edwige Roberto MD on 04/12/2024 8:15 AM PDT Approved by: Edwige Roberto MD on 04/12/2024 8:15 AM PDT Station ID: [id number]
== END 2024-04-11 15:34 | disposition home or self-care (01) ==
LOC: DI 15:33
PROVIDERS: ATTEND Podiatrist
DX: M21.42 Flat foot [pes planus] (acquired), left foot (principal); M19.072 Primary osteoarthritis, left ankle and foot; M85.872 Other specified disorders of bone density and structure, left ankle and foot; M77.32 Calcaneal spur, left foot

== ENCOUNTER 2024-04-18 16:35 | Outpatient (CLI) | payer MEDICARE, OTHER ==
--- NOTE | 2024-04-18 18:04 | XRAY Report ---
PROCEDURE: Foot 3+V RT (Weight Bearing) INDICATIONS: R FOOT PAIN TECHNIQUE: 3 views of the foot were acquired. COMPARISON: None. FINDINGS: Bones: No fractures or dislocations. No suspicious bony lesions. Pes planus deformity with calcane al pitch of 12 degrees. Decreased mineralization. Mild hallux valgus at the first MTP joint with mild degenerative articular surface spurring. Mild degenerative joint space loss at the fourth TMT joint. Soft tissues: No tibiotalar joint effusion. Achilles tendon appears normal. IMPRESSION: Pes planus deformity, mild first MTP hallux valgus, and mild degenerative changes seen. Reviewed by: Tricia Rodriguez MD on 04/18/2024 6:02 PM PDT Approved by: Tricia Rodriguez MD on 04/18/2024 6:02 PM PDT Station ID: [id number]
== END 2024-04-18 16:36 | disposition home or self-care (01) ==
LOC: DI 16:35
PROVIDERS: ATTEND Podiatrist
DX: M21.41 Flat foot [pes planus] (acquired), right foot (principal); M20.11 Hallux valgus (acquired), right foot; M19.071 Primary osteoarthritis, right ankle and foot